=== PATIENT | male | born 1980 | race Caucasian/White ===

== ENCOUNTER 2021-05-12 15:20 | Observation (INO) | payer BC, SELFPAY ==
--- NOTE | ~2021-05-12 | US_ITS ---
EXAMINATION: US carotid duplex BI DATE: 05/13/2021 10:44 INDICATION: Slurred speech. TECHNIQUE: Grayscale, color Doppler, and pulsed Doppler images of the cervical carotid arteries were obtained. The degree of vessel stenosis is placed in one of the following categories: normal, <50%, 5 0-69%, >=70% but less than near-occlusion, near-occlusion, or total occlusion. Note that percent sten osis relative to normal distal artery lumen diameter is indirectly measured from velocity measurement s as described by Sarbjit, et al. Radiology 2003; 229:340-346. COMPARISON: Head CT 05/12/2021 FINDINGS: RIGHT: The right common carotid artery (CCA) peak systolic velocity (PSV) is 99 cm/s. The right internal car otid artery (ICA) PSV is 81 cm/s. The right ICA end-diastolic velocity (EDV) is 31 cm/s. The right IC A/CCA PSV ratio is 0.8. Grayscale and color Doppler images yield an estimate of <50% diameter reducti on from plaque in the ICA. There is antegrade flow in the right vertebral artery. LEFT: The left CCA PSV is 124 cm/s. The left ICA PSV is 74 cm/s. The left ICA EDV is 30 cm/s. The left ICA/ CCA PSV ratio is 0.6. Grayscale and color Doppler images yield an estimate of <50% diameter reduction from plaque in the ICA. There is antegrade flow in the left vertebral artery. IMPRESSION: 1. <50% stenosis in the right internal carotid artery. 2. <50% stenosis in the left internal carotid artery. Reviewed, dictated and finalized at location A.
--- NOTE | ~2021-05-12 | MR_ITS ---
EXAMINATION: MR cervical spine wo con DATE: 05/14/2021 14:16 INDICATION: Vision change. TECHNIQUE: Magnetic resonance imaging (MRI) of the cervical spine was performed without intravenous c ontrast. Sequences included sagittal T2-weighted FSE, sagittal T2-weighted FS FSE, sagittal T1-weight ed FSE, axial MERGE, and axial T2-weighted FSE. COMPARISON: None FINDINGS: Bone alignment is normal. Vertebral body heights and intervertebral disc heights are normal . There are approximately 5 ill-defined lesions of increased T2-weighted signal intensity in the cerv ical spinal cord. The following disc levels are specifically discussed: C2-C3: The disc does not extend beyond the endplate margin. There is no uncovertebral joint osteoarth ritis. There is no facet joint osteoarthritis. There is no neural foraminal stenosis. There is no elida tral canal stenosis. C3-C4: The disc does not extend beyond the endplate margin. There is no uncovertebral joint osteoarth ritis. There is no facet joint osteoarthritis. There is no neural foraminal stenosis. There is no elida tral canal stenosis. C4-C5: The disc does not extend beyond the endplate margin. There is no uncovertebral joint osteoarth ritis. There is mild bilateral facet joint osteoarthritis. There is no neural foraminal stenosis. The re is no central canal stenosis. C5-C6: There is a central extrusion. There is no uncovertebral joint osteoarthritis. There is mild le ft facet joint osteoarthritis. There is no neural foraminal stenosis. There is mild central canal jaison nosis. C6-C7: The disc does not extend beyond the endplate margin. There is no uncovertebral joint osteoarth ritis. There is no facet joint osteoarthritis. There is no neural foraminal stenosis. There is no elida tral canal stenosis. C7-T1: The disc does not extend beyond the endplate margin. There is no uncovertebral joint osteoarth ritis. There is mild bilateral facet joint osteoarthritis. There is no neural foraminal stenosis. The re is no central canal stenosis. IMPRESSION: 1. Spinal cord lesions, consistent with multiple sclerosis. Reviewed, dictated and finalized at location A.
--- NOTE | ~2021-05-12 | XR_ITS ---
EXAMINATION: XR chest 1V portable DATE: 05/12/2021 16:44 INDICATION: Blurred vision. TECHNIQUE: A single frontal view of the chest was obtained. COMPARISON: None. FINDINGS: Calcified pulmonary nodules are consistent with old granulomatous disease. No pleural effus ion or pneumothorax. The heart size is normal. IMPRESSION: 1. No acute cardiopulmonary disease. Reviewed, dictated and finalized at location A.
--- NOTE | ~2021-05-12 | MR_ITS ---
EXAMINATION: MR brain/brain stem wo/w con EXAM DATE: 05/13/2021 09:01 INDICATION: Blurry vision, slurred speech. TECHNIQUE: Magnetic resonance imaging (MRI) of the brain/brain stem obtained without contrast. Sagit donna T1, axial diffusion, gradient echo (T2*), T1, T2, FLAIR sequences obtained. Patient was then inj ected with 20 cc intravenous Multihance contrast. Axial and coronal postcontrast T1 weighted sequence s obtained. Correlation is made to CT head from yesterday. FINDINGS: There are 2 right matter signal abnormalities, one in the left centrum semiovale, frontal l obe white matter measuring 1.1 cm and the other in the left parietal lobe white matter measuring 6 mm . These demonstrate decreased T1, increased T2 signal intensity. These appear quite well marginated o n sagittal T1 weighted sequence, demonstrates increased T2 shine through, but no restricted diffusion or enhancement. Could be sequela from demyelinating disease such as multiple sclerosis or acute diss eminated encephalomyelitis (ADEM), vasculopathy, lyme's disease or reactive astrocytosis (gliosis) se condary to nonspecific etiology. A 3 month follow-up brain MRI would be appropriate. There are no areas of restricted diffusion to suggest acute infarction. There is no acute hemorrhage seen on the T2*, a hemosiderin sensitive sequence. The ventricles are normal in size. There are no extra-axial collections. Flow voids are seen in the cerebral arteries on the T2-weighted sequences consistent with their expected patency. The orbits are unremarkable. Soft tissue is unremarkable. There are no areas of abnormal enhancement on the postcontrast images. IMPRESSION: 2 white matter lesions in nonspecific locations, could be sequela from demyelinating proc ess. Some other possibilities above. Recommend 3 month follow-up brain MRI without and with contrast. Reviewed, dictated and finalized at location A. IMPRESSION: 2 white matter lesions in nonspecific locations, could be sequela f rom demyelinating process. Some other possibilities above. Recommend 3 month fo llow-up brain MRI without and with contrast.
--- NOTE | ~2021-05-12 | CT_ITS ---
EXAMINATION: CTA brain carotid EXAM DATE: 05/12/2021 23:04 INDICATION: Blurry vision and slurred speech. TECHNIQUE: Spiral CTA of the carotid arteries was performed with intravenous injection 100 cc of Omn ipaque 350. Axial, coronal, sagittal reformatted images reviewed. Additional reformatted images crea ekaterina on dedicated 3-D workstation. NASCET comparable standard used to assess the degree of arterial s tenosis. Spiral CT angiogram cerebral arteries performed with the same intravenous injection of cont rast. Source images of the brain CTA transferred to dedicated workstation for 3-D rotational image cr eation. Coronal, sagittal maximum intensity pixel images also reviewed. The dose-length product (DL P) for this examination was 1264.02 mGy-cm. The exposure was tailored according to patient size, an d iterative reconstruction (ASIR) was used as additional dose reduction technique. Correlation is mad e to head CT performed earlier same date. FINDINGS: The vertebral arteries are codominant. There is no carotid plaque, 0% carotid stenosis bila terally. There is no carotid or vertebral basilar arterial dissection or fibromuscular dysplasia. Th ere are no cerebral artery aneurysms. There is symmetric cerebral artery arborization. The sagittal, transverse and sigmoid sinuses enhance normally, no venous sinus thrombosis. Internal cerebral veins also enhance normally. Incidental Findings: Several left upper lobe granulomas. IMPRESSION: 1. No acute carotid or intracranial findings. 2. Bilateral carotid 0% stenosis. Reviewed, dictated and finalized at location A.
--- NOTE | ~2021-05-12 | XR_ITS ---
EXAMINATION: XR lumbar puncture diagnostic DATE: 05/14/2021 17:33 INDICATION: Multiple sclerosis. TECHNIQUE: The procedure including the risks, benefits, and alternatives was discussed with the patie nt. Risks discussed included spinal headache, cerebrospinal fluid leak, bleeding, and infection. The patient understood the risks and agreed to proceed. A timeout was performed to verify the patient' s name, date of , and procedure to be performed. The skin overlying the L4-L5 level was prepped and draped in usual sterile fashion. Subcutaneous 1% lidocaine was used for local anesthesia. A 20 gauge spinal needle was advanced under fluoroscopic guidance. The needle was removed and the entry s ite was cleaned and dressed. There were no immediate complications. Fluoroscopy exposure time was 0. 1 minutes. The total number of images was 1. FINDINGS: Real-time fluoroscopy demonstrates the needle at the L4-L5 level. The opening pressure was 12 cm water (Normal range is variably defined as 6-20 cm water and up to 25 cm water in obese patient s. Pressure >25 cm water is one of the modified Dandy criteria for idiopathic intracranial hypertensi on). 14 mL of clear, colorless fluid was collected in 4 tubes. IMPRESSION: 1. Successful fluoro-guided lumbar puncture. Reviewed, dictated and finalized at location A.
--- NOTE | ~2021-05-12 | CT_ITS ---
EXAMINATION: CT brain wo con DATE: 05/12/2021 16:53 INDICATION: Vision changes and slurred speech TECHNIQUE: Computed tomography (CT) of the head was performed without intravenous contrast. Sagittal and coronal reconstructions were performed. The mA was adjusted according to patient size. Iterative reconstruction technique was employed. The dose-length product was 605.33 mGy-cm. COMPARISON: None FINDINGS: No acute intracranial hemorrhage, acute infarction or abnormal extra axial fluid collection. There is mild scattered white matter hypoattenuation which is disproportionate for age. Ventricles are deacon l and symmetric. No mass/mass effect. The orbits, paranasal sinuses and mastoid air cells are normal. IMPRESSION: 1. Mild scattered white matter hypoattenuation which is disproportionate for age. The differential di agnosis includes premature chronic small vessel ischemic disease (especially if the patient is diabet ic or has other cardiovascular risk factors), demyelinating disease such as multiple sclerosis, drug abuse, vasculitis, or reactive astrocytosis (gliosis) secondary to nonspecific etiology. Reviewed, dictated and finalized at location B. IMPRESSION: 1. Mild scattered white matter hypoattenuation which is disproportionate for ag e. The differential diagnosis includes premature chronic small vessel ischemic disease (especially if the patient is diabetic or has other cardiovascular risk factors), demyelinating disease such as multiple sclerosis, drug abuse, vascul itis, or reactive astrocytosis (gliosis) secondary to nonspecific etiology.
--- NOTE | ~2021-05-12 | MR_ITS ---
EXAMINATION: MR thoracic spine wo con DATE: 05/14/2021 14:16 INDICATION: Multiple sclerosis. Vision change. TECHNIQUE: Magnetic resonance imaging (MRI) of the thoracic spine was performed without intravenous c ontrast. Sagittal localizer T1-weighted FSE of the cervical spine was obtained. Thoracic spine sequen flo included sagittal T2-weighted FSE, sagittal T1-weighted FSE, sagittal T2-weighted FS FSE, and axi al T2-weighted FSE. COMPARISON: None FINDINGS: Bone alignment is normal. There is mild chronic anterior wedging of T4 and T6-T8 vertebral bodies. At T6-T7, there is a left central extrusion with mild central canal stenosis and ventral inde ntation of the spinal cord. At T7-T8, there is a left central extrusion with mild central canal steno sis and ventral indentation of the spinal cord. At T8-T9, there is a central extrusion with mild cent ral canal stenosis and ventral indentation of spinal cord. There is multilevel mild facet joint osteo arthritis. No neural foraminal stenosis. The spinal cord signal intensity is normal. IMPRESSION: 1. Mild thoracic spondylosis. Reviewed, dictated and finalized at location A.
[2021-05-12 16:20] VITALS: BP 112/97; PULSE 50; RESP 14; TEMP 36.8; O2SAT 97
--- NOTE | 2021-05-12 16:26 | ECG_ITS ---
Measurements Intervals [place] Rate: 57 P: 55 MI: 128 QRS: 15 QRSD: 94 T: 41 QT: 417 QTc: 408 Interpretive Statements SINUS BRADYCARDIA BASELINE ARTIFACT- I, III, AVR, AVL, AVF, V1 BORDERLINE ECG Electronically Signed On 05-12-2021 18:52:13 CDT by Can Rodriges D.O.
[2021-05-12 16:50] LABS: Basophils Percent Auto 0.5 % (0.2-1.2); Eosinophils Absolute Auto 0.2 K/mm3 (0-0.3); Eosinophils Percent Auto 2.6 % (0-4.4); Hematocrit 49.9 % (42.0-52.0); Hemoglobin 15.9 g/dL (14.0-18.0); Immature Granulocyte Absolute 0.01 K/mm3 (0.00-0.031); Immature Granulocyte Percent A 0.2 % (0-0.5); Lymphocytes Absolute Auto 1.98 K/mm3 (0.9-3.2); Mean Corpuscular HGB Conc 31.9 g/dl (32-36); Mean Corpuscular Volume 91.1 fl (80-100); Mean Platelet Volume 9.9 fl (7.4-10.4); Monocytes Absolute Auto 0.5 K/mm3 (0.1-0.6); Monocytes Percent Auto 7.6 % (2.6-8.5); Neutrophils Absolute Auto 3.9 K/mm3 (1.3-6.7); Neutrophils Percent Auto 59.1 % (45.5-73.1); Platelet Count Result 242 k/mm3 (150-375); Red Blood Count 5.48 M/mm3 (4.6-6.20); Red Cell Distribution Width 13.7 % (11.5-14.5); White Blood Count 6.6 K/mm3 (4.5-10.0)
[2021-05-12 17:01] LABS: Anion Gap 10 mmol/L (8-16); Blood Urea Nitrogen 14 mg/dL (9-20); Calcium 9.3 mg/dL (8.4-10.2); Carbon Dioxide 26 mmol/L (22-30); Chloride 101 mmol/L (98-107); Estimated Glomerular Filt Rate > 60; Glucose 96 mg/dL (65-110); Potassium 3.9 mmol/L (3.4-5.0); Sodium 137 mmol/L (137-145)
[2021-05-12 17:04] LABS: Partial Thromboplastin Time 27.3 SECONDS (22.3-36.8)
[2021-05-12 17:13] LABS: Troponin I < 0.012 ng/mL (0.000-0.034)
[2021-05-12 20:38] VITALS: BP 131/95; PULSE 54; RESP 17; TEMP 35.9; O2SAT 100
[2021-05-12 21:21] VITALS: BP 122/66; PULSE 55; O2SAT 100
--- NOTE | 2021-05-12 21:24 | ED.EYEPROB ---
HPI - Eye Problem General Chief complaint: Eye Problems Stated complaint: VISUAL CHANGES SINCE YESTERDAY Time Seen by Provider: 05/12/21 20:55 History of Present Illness HPI Narrative: Patient presents with multiple neurological complaints. Reports approximately 3 weeks ago he had a few days of slurred speech which resolved without intervention. Yesterday she woke up with description of blurry vision and bright vision in both of his eyes. It is persisted today talk to his primary care doctor is referred to ER for evaluation. Denies any headache, lightheadedness, chest pain, shortness of breath, numbness, weakness. Denies any family history of neurological disorders Related Data Home Medications Medication Instructions Recorded Confirmed No Home Medications 05/07/21 05/07/21 Allergies Allergy/AdvReac Type Severity Reaction Status Date / Time No Known Allergies Allergy Unverified 05/12/21 14:14 Review of Systems Review of Systems: CONSTITUTIONAL: Denies fever, chills, or sweats. EYES: Denies visual changes, redness, or discharge. ENT: Denies rhinorrhea, congestion, sore throat, or otalgia. CARDIOVASCULAR: Denies chest pain, palpitations, or edema. RESPIRATORY: Denies cough or dyspnea. GASTROINTESTINAL: Denies abdominal pain, nausea, vomiting, or diarrhea. GENITOURINARY: Denies dysuria or hematuria. SKIN: Denies rash or itching. MUSCULOSKELETAL: Denies back pain, joint pain, or myalgia. NEUROLOGIC: Denies headache, numbness, dizziness, or weakness. PSYCHIATRIC: Denies anxiety or depression. All systems reviewed & are unremarkable except as noted in HPI and below PMFSH Surgical History Surgical History H/O vasectomy History of removal of cyst Family History Family History Mother High cholesterol Cancer Father Cerebrovascular accident Grandparent Acute myocardial infarction High cholesterol Heart disease Social History Social History Social History: Second hand tobacco smoke exposure: No Alcohol intake: never Substance use: never Substance use type: does not use Gender identity (if verbalized by the patient): Male Exam Narrative: GENERAL: Well-appearing, well-nourished, and in no acute distress. HEAD: Normocephalic, atraumatic. EYES: PERRLA and EOMI. ENT: Nares clear, no rhinorrhea or epistaxis. Mucous membranes moist. NECK: Supple. No masses. No JVD CHEST: Clear to auscultation. No respiratory distress. No wheezes rales or rhonchi HEART: Regular rate and rhythm. No murmur heard. Normal peripheral pulses. ABDOMEN: Soft, nontender, nondistended, normal active bowel sounds. EXTREMITIES: Normal range of motion. No edema. SKIN: Warm, dry, no rash. NEURO: Cranial nerves II through XII in tact patient is 5 out of 5 strength in all extremities, sensation intact to light touch in all extremities. Alert and oriented x3. PSYCH: Normal mood and affect. Course Vital Signs Vital signs: Vital Signs Temperature 36.8 C 05/12/21 16:20 Pulse Rate 50 L 05/12/21 16:20 Respiratory Rate 14 05/12/21 16:20 Blood Pressure 112/97 H 05/12/21 16:20 Pulse Oximetry 97 05/12/21 16:20 Temperature 35.9 C L 05/12/21 20:38 Pulse Rate 66 05/13/21 02:03 Respiratory Rate 19 05/13/21 02:03 Blood Pressure 109/71 05/13/21 02:03 Pulse Oximetry 99 05/13/21 02:03 MDM - Eye Problem MDM Narrative Medical decision making narrative: Patient presented with waxing waning neurological symptoms. Patient overall looks clinically well there is no appreciable focal neurological deficit on exam. Labs imaging obtained imaging with hypoattenuation in the white matter. Given waxing waning symptoms age and lack of risk factors primary concern is for MS. Case discussed with neurology who recommended admission for [facility]
[2021-05-12 23:26] VITALS: BP 112/71; PULSE 56; RESP 19; O2SAT 100
--- NOTE | 2021-05-13 | ECHO_ITS ---
Patient Info Name: Ilia Leal Age: 41 years : 1980 Gender: Male Ht: 73 in Wt: 224 lbs BSA: 2.31 m2 HR: 64 bpm BP: 120 / 66 mmHg Technical Quality: Fair Exam Date: 05/13/2021 12:23 PM Exam Location: [facility] Patient Status: Inpatient Admit Date: 05/13/2021 Staff Ordering Physician: Marko [employer] Website Developer: Gifty Patterson RDCS Attending Provider: Sepideh Rolle DO Referring Physician: Zafar TODD; Exam Type: CA echo doppler color flow Study Info Indications - neurologigal defects Complete two-dimensional, color flow and Doppler transthoracic echocardiogram is performed. Summary 1. Complete two-dimensional, color flow and Doppler transthoracic echocardiogram is performed. 2. Left ventricular chamber dimension is normal. 3. Left ventricular systolic function is normal, estimated at 60-65%. 4. The left ventricular diastolic function is normal. 5. E/e' 5 is not elevated. 6. No pulmonary hypertension, estimated pulmonary arterial systolic pressure is 22 mmHg. Left Ventricle E/e' 5 is not elevated. Left ventricular chamber dimension is normal. Left ventricular systolic function is normal, estimated at 60-65%. The left ventricular diastolic function is normal. Right Ventricle Right ventricular chamber dimension is normal. Right ventricular systolic function is normal. Left Atria Left atrial chamber dimension is normal. Right Atria Right atrial chamber dimension is normal. Aortic Valve The aortic valve is trileaflet. There is no aortic valve stenosis. There is no aortic valve regurgitation. Pulmonic Valve There is no pulmonic regurgitation. Mitral Valve There is no mitral valve stenosis. There is no mitral valve regurgitation. Tricuspid Valve There is no tricuspid valve regurgitation. No pulmonary hypertension, estimated pulmonary arterial systolic pressure is 22 mmHg. Pericardium/Pleural There is no pericardial effusion. Inferior Vena Cava Normal inferior vena cava with >50% collapse upon inspiration consistent with normal right atrial pressure, 5 mmHg. Aorta The aortic root size at the sinus of Valsalva is normal. Left Ventricular Outflow Tract Name Value Normal LVOT 2D LVOT Diameter 2.1 cm LVOT Doppler LVOT Peak Gradient 7 mmHg LVOT Mean Gradient 4 mmHg LVOT VTI 26 cm LVOT VTI/AV VTI Ratio 0.9 LVOT Stroke Volume 88 ml LVOT CO 19.2 l/min LVOT CI 8.3 l/min/m2 Pulmonic Valve Name Value Normal PV Doppler PV Peak Gradient 3 mmHg Mitral Valve Name
[2021-05-13 01:04] VITALS: BP 141/86; PULSE 61; RESP 18; O2SAT 98
[2021-05-13 02:03] VITALS: BP 109/71; PULSE 66; RESP 19; O2SAT 99
[2021-05-13 02:56] VITALS: BP 116/71; PULSE 52; RESP 17; O2SAT 97
--- NOTE | 2021-05-13 03:00 | ADMGEN ---
This patient, Ilia Leal, was admitted to Medical Room 340-01. Patient/family oriented to hospital policies and general routines including ID bracelet, bed and alarms, visiting hours, pain management, procedures, bathroom and other care routines, personal items, smoking policy, room service/diet, and visiting hours. Information on how to activate the Rapid Response Team has been discussed. Patient/Family are encouraged to report perceived risks to care and to ask questions if they do not understand what they are told or what they should do.
[2021-05-13 03:03] VITALS: BP 120/66; PULSE 64; RESP 16; TEMP 36.6; O2SAT 99
[2021-05-13 03:08] VITALS: BMI 29.6
--- NOTE | 2021-05-13 07:17 | PM.IMHP ---
H&P: HPI History of Present Illness Date/Time: Date of Service: 05/13/21 07:17 Chief Complaint: Blurred Vision Narrative: Patient is a 41 year old with no medical history came to the ED for evaluation of blurred vision that started on Monday. Patient stated that about 3 weeks ago he experienced slurred speech that spontaneously resolved after 3-4 days. At that time he did not feel that it was a problem since it did resolve. However, on Monday he woke up at 0600 and had blurred vision in both eyes. He stated that it was still there on Monday so he consulted with his primary care physician. His PCP recommended that he come to the ED for further evaluation. Today, he stated that he was tired. He did not have any complaints of chest pain, palpitations, shortness of breath, nausea, vomiting, abdominal pain, headache, nuchal rigidity, urinary dysfunction including urgency/frequency, fever, sweats, chills, weakness (unilateral or bilateral), fatigue, constipation, diarrhea, syncope, or falls. Patient did say that he has been going to a chiropractor on and off for the last 4-5 years. He did state that his last visit was roughly beginning of summer. Patient has been admitted to our service as observation status Review of Systems Review of Systems: All systems reviewed & are unremarkable except as noted in HPI and below PMFSH Surgical History Surgical History H/O vasectomy History of removal of cyst Family History Family History Mother High cholesterol Cancer unknown what kind of cancer Father Cerebrovascular accident On 05/08/21 High cholesterol History of common carotid artery stent placement Grandparent Acute myocardial infarction High cholesterol Heart disease Social History Social History Social History: Patient is to Nolvia who will be his surrogate. He lives in a house with her and his four children. He also has two cats. He wishes to be a full code. Smoking status: Never smoker Second hand tobacco smoke exposure: No Alcohol intake: never Substance use: never Substance use type: does not use Living arrangements: with family Gender identity (if verbalized by the patient): Male Sexual Orientation (if Verbalized by the Patient): Straight or Heterosexual Spiritual care concerns: No (Hinduism) Agree to blood products: Yes Meds Home Medications and Allergies Home Medications Medication Instructions Recorded Confirmed Type No Home Medications 05/07/21 05/13/21 History Allergies Allergy/AdvReac Type Severity Reaction Status Date / Time No Known Allergies Allergy Verified 05/13/21 03:05 Vital Signs Vital Signs - 24 hr 05/12/21 16:20 05/12/21 20:38 05/12/21 21:21 Temperature 36.8 C 35.9 C L Pulse Rate 50 L 54 L 55 L Respiratory Rate 14 17 Blood Pressure 112/97 H 131/95 H 122/66 Pulse Oximetry 97 100 100 05/12/21 23:26 05/13/21 01:04 05/13/21 02:03 Temperature Pulse Rate 56 L 61 66 Respiratory Rate 19 18 19 Blood Pressure 112/71 141/86 H 109/71 Pulse Oximetry 100 98 99 05/13/21 02:56 05/13/21 03:03 Temperature 36.6 C Pulse Rate 52 L 64 Respiratory Rate 17 16 Blood Pressure 116/71 120/66 Pulse Oximetry 97 99 Exam Const: General: cooperative, healthy appearing, comfortable, no acute distress, well developed, alert, awake, Physically active and tired appearing Nutritional Appearance: average body habitus and well nourished Orientation/consciousness: oriented to person, oriented to place, oriented to time and patient oriented x3 Limitations: no limitations HENMT: Head: normal to inspection Ears: hearing grossly normal bilaterally General nose exam: Normal external nose present Mouth: Yes Normal oral and palatal mucosa present, Yes lip normal
[2021-05-13 14:00] VITALS: BP 123/68; PULSE 63; RESP 18; TEMP 35.8; O2SAT 100
--- NOTE | 2021-05-13 16:23 | WPDNEURCNPN ---
Consult date: 05/13/21 HPI: Ilia Leal is a 41 year old male has been admitted to the hospital [facility] Surgical History Surgical History H/O vasectomy History of removal of cyst Family History Family History Mother High cholesterol Cancer unknown what kind of cancer Father Cerebrovascular accident On 05/08/21 High cholesterol History of common carotid artery stent placement Grandparent Acute myocardial infarction High cholesterol Heart disease Social History Social History Social History: Patient is to Nolvia who will be his surrogate. He lives in a house with her and his four children. He also has two cats. He wishes to be a full code. Smoking status: Never smoker Second hand tobacco smoke exposure: No Alcohol intake: never Substance use: never Substance use type: does not use Living arrangements: with family Gender identity (if verbalized by the patient): Male Sexual Orientation (if Verbalized by the Patient): Straight or Heterosexual Spiritual care concerns: No (Holiness) Agree to blood products: Yes Meds Home Medications and Allergies Home Medications Medication Instructions Recorded Confirmed Type No Home Medications 05/07/21 05/13/21 History Allergies Allergy/AdvReac Type Severity Reaction Status Date / Time No Known Allergies Allergy Verified 05/13/21 03:05 Vital Signs Vital Signs - 24 hr 05/12/21 20:38 05/12/21 21:21 05/12/21 23:26 Temperature 35.9 C L Pulse Rate 54 L 55 L 56 L Respiratory Rate 17 19 Blood Pressure 131/95 H 122/66 112/71 Pulse Oximetry 100 100 100 05/13/21 01:04 05/13/21 02:03 05/13/21 02:56 Temperature Pulse Rate 61 66 52 L Respiratory Rate 18 19 17 Blood Pressure 141/86 H 109/71 116/71 Pulse Oximetry 98 99 97 05/13/21 03:03 05/13/21 14:00 Temperature 36.6 C 35.8 C L Pulse Rate 64 63 Respiratory Rate 16 18 Blood Pressure 120/66 123/68 Pulse Oximetry 99 100 Results Labs CBC & Chem 7: 05/12/21 16:35 05/12/21 16:35 Labs: Short CBC 05/12/21 Range/Units 16:35 WBC 6.6 (4.5-10.0) K/mm3 Hgb 15.9 (14.0-18.0) g/dL Hct 49.9 (42.0-52.0) % Plt Count 242 (150-375) k/mm3 BMP 05/12/21 16:35 Sodium 137 Potassium 3.9 Chloride 101 Carbon Dioxide 26 BUN 14 Creatinine 0.70 Glucose 96 Calcium 9.3 Cardiac Enzymes 05/12/21 Range/Units 16:35 Troponin I < 0.012 (0.000-0.034) ng/mL Quality VTE Prophylaxis VTE prophylaxis: mechanical ordered (SCDs)
--- NOTE | 2021-05-13 16:31 | WPDNEURCNPN ---
Assessment and Plan Additional Plan considering the symptomatology, and negative evaluation otherwise except the 2 spots on MRI I discussed with him thoroughly to have the MRI of the cervical and thoracic spine even if he do not want to go through the spinal tap to rule out the possibility of demyelinating process further recommendation will be made accordingly Consult date: 05/13/21 Time Seen: 09:30 HPI: Ilia Leal is a 41 year old male Has been admitted to the hospital through the emergency room for the complaints of blurred vision since Monday patient reported about 3 weeks ago he experienced slurred speech that is spontaneously resolved after several days and at that time he did not feel that it was a problem since it did resolved however on Monday he woke up at 6:00 a.m. with the blurred vision in both eyes when he consulted a primary care physician who recommended him to come to the emergency room for further evaluation he had no other associated generalized symptomatology. His past history is consistent with only having had a vasectomy, he is not a smoker does not drink not allergic to any medications and also not taking any home medications his evaluation up until now has documented him to have normal routine blood studies with INR of 1.0 and a PTT of 27.3, chemistry is normal, initial CT scan of the head in the emergency room was negative except mild scatter white matter hypoattenuation disproportionate for the age head neck CTA revealed no evidence of carotid or intracranial finding and there were bilateral carotid 0% stenosis, echocardiogram has documented normal dimension of the left ventricular chamber left ventricular systolic functions and ejection fraction as well no evidence of pulmonary hypertension carotid ultrasound documented less than 50% stenosis bilaterally but MRI of the brain documented 2 white matter lesions in nonspecific location which could be the sequela of demyelinating process which repeat follow-up MRI studies were suggested Review of Systems Review of Systems: All systems reviewed & are unremarkable except as noted in HPI and below PMFSH Surgical History Surgical History H/O vasectomy History of removal of cyst Family History Family History Mother High cholesterol Cancer unknown what kind of cancer Father Cerebrovascular accident On 05/08/21 High cholesterol History of common carotid artery stent placement Grandparent Acute myocardial infarction High cholesterol Heart disease Social History Social History Social History: Patient is to Nolvia who will be his surrogate. He lives in a house with her and his four children. He also has two cats. He wishes to be a full code. Smoking status: Never smoker Second hand tobacco smoke exposure: No Alcohol intake: never Substance use: never Substance use type: does not use Living arrangements: with family Gender identity (if verbalized by the patient): Male Sexual Orientation (if Verbalized by the Patient): Straight or Heterosexual Spiritual care concerns: No (Synagogue) Agree to blood products: Yes Meds Home Medications and Allergies Home Medications Medication Instructions Recorded Confirmed Type No Home Medications 05/07/21 05/13/21 History Allergies Allergy/AdvReac Type Severity Reaction Status Date / Time No Known Allergies Allergy Verified 05/13/21 03:05 Vital Signs Vital Signs - 24 hr 05/12/21 20:38 05/12/21 21:21 05/12/21 23:26 Temperature 35.9 C L Pulse Rate 54 L 55 L 56 L Respiratory Rate 17 19 Blood Pressure 131/95 H 122/66 112/71 Pulse Oximetry 100 100 100 05/13/21 01:04 05/13/21 02:03 05/13/21 02:56 Temperature Pulse Rate 61 66 52 L Respiratory Rate 18 19 17 Blood Pressure 141/86 H 109/71 116/71 Pu
[2021-05-13 22:00] VITALS: BP 109/58; PULSE 67; RESP 20; TEMP 36.8; O2SAT 99
[2021-05-14 06:00] VITALS: BP 121/68; PULSE 52; RESP 20; TEMP 36.4; O2SAT 99
[2021-05-14 14:00] VITALS: BP 131/73; PULSE 64; RESP 16; TEMP 36.5; O2SAT 99
--- NOTE | 2021-05-14 14:55 | WPDNEUROPN ---
Objective Data Vital Signs Vital Signs: Vital Signs - 24 hr 05/13/21 22:00 05/14/21 06:00 Temperature 36.8 C 36.4 C L Pulse Rate 67 52 L Respiratory Rate 20 20 Blood Pressure 109/58 L 121/68 Pulse Oximetry 99 99 Intake/Output Intake/Output: Intake & Output 05/11/21 05/12/21 05/13/21 05/14/21 23:59 23:59 23:59 23:59 Intake Total 1920 400 Output Total 300 300 Balance 1620 100 Meds/Results Radiology Results: ITS Impressions Chest X-Ray 05/12/21 16:45 IMPRESSION: 1. No acute cardiopulmonary disease. Head CT 05/12/21 16:56 IMPRESSION: 1. Mild scattered white matter hypoattenuation which is disproportionate for age. The differential diagnosis includes premature chronic small vessel ischemic disease (especially if the patient is diabetic or has other cardiovascular risk factors), demyelinating disease such as multiple sclerosis, drug abuse, vasculitis, or reactive astrocytosis (gliosis) secondary to nonspecific etiology. Head/Neck CTA 05/13/21 07:15 IMPRESSION: 1. No acute carotid or intracranial findings. 2. Bilateral carotid 0% stenosis. Brain MRI 05/13/21 09:06 IMPRESSION: 2 white matter lesions in nonspecific locations, could be sequela from demyelinating process. Some other possibilities above. Recommend 3 month follow-up brain MRI without and with contrast. Carotid Doppler Study 05/13/21 10:57 IMPRESSION: 1. <50% stenosis in the right internal carotid artery. 2. <50% stenosis in the left internal carotid artery. Cervical Spine MRI 05/14/21 14:18 IMPRESSION: 1. Spinal cord lesions, consistent with multiple sclerosis. Thoracic Spine MRI 05/14/21 14:21 IMPRESSION: 1. Mild thoracic spondylosis. Quality VTE Prophylaxis VTE prophylaxis: mechanical ordered (SCDs)
[2021-05-14 16:02] LABS: Hematocrit 49.7 % (42.0-52.0); Hemoglobin 15.5 g/dL (14.0-18.0); Mean Corpuscular HGB Conc 31.2 g/dl (32-36); Mean Corpuscular Volume 93.1 fl (80-100); Platelet Count Result 228 k/mm3 (150-375); Red Blood Count 5.34 M/mm3 (4.6-6.20); Red Cell Distribution Width 13.8 % (11.5-14.5); White Blood Count 6.5 K/mm3 (4.5-10.0)
[2021-05-14 16:13] LABS: INR 1.1; Prothrombin Time 13.8 Seconds (11.1-14.7)
[2021-05-14 16:14] LABS: Alanine Aminotransferase 15 U/L (4-50); Albumin Level 4.1 g/dL (3.5-5.1); Alkaline Phosphatase 81 U/L (38-126); Anion Gap 12 mmol/L (8-16); Aspartate Amino Transferase 19 U/L (17-59); Bilirubin,Total 0.2 mg/dL (0.2-1.3); Blood Urea Nitrogen 10 mg/dL (9-20); Calcium 8.7 mg/dL (8.4-10.2); Carbon Dioxide 21 mmol/L (22-30); Chloride 104 mmol/L (98-107); Estimated CRCL calculation 157 ml/min; Estimated Glomerular Filt Rate > 60; Glucose 123 mg/dL (65-110); Potassium 3.4 mmol/L (3.4-5.0); Sodium 137 mmol/L (137-145)
--- NOTE | 2021-05-14 16:24 | PM.DS ---
DS: Admitting Diagnosis Admitting Diagnosis Multiple Sclerosis DS: Discharge Diagnosis Discharge Diagnosis (1) Multiple sclerosis: Code(s): G35 - Multiple sclerosis Status: Acute Assessment and Plan: Brain MRI shows demyelination and hypoattenuation Cervical spine MRI shows Lesions consistent with MS Will follow up with Dr. Galindo in 10 days Call for appt. Lumbar puncture pending (2) Visual disturbance: Code(s): H53.9 - Unspecified visual disturbance Status: Acute Assessment and Plan: Reports blurred vision for the last two days Head ct shows Mild scattered white matter hypoattenuation which is disproportionate for age Head and neck CTA bilateral carotid 0% stenosis Carotid doppler ordered and pending MRI ordered and pending Neurology consult thank you for recommendations Neuro checks Q4hr Echo ordered SCDs (3) Slurred speech: Code(s): R47.81 - Slurred speech Status: Acute Assessment and Plan: See above DS: Summary Hospital Course Reason for hospitalization: Date of service 05/14/2021 at 11:30 a.m. Hospital Course: Patient is a 41-year-old male here for evaluation of multiple sclerosis patient had MRIs of his head, neck, spine which was consistent with multiple sclerosis with noted lesions and demyelination. Patient is going for spinal tap and will need to follow up with to see her in about 10 days. Patient does say he feels about the same but not any worse. Vision is still blurred and has get headaches with reading. He did say that he has not been to the eye doctor in a long while, but will make an appointment. Patient denies chest pain, shortness of breath, nausea, vomiting, weakness, fatigue, fevers, sweats, or chills. Status at Discharge Functional status at discharge: independent ambulation Overall status at discharge: patient is back to baseline Time Spent with Patient Time attestation: Total time spent providing and/or coordinating discharge services: 52 minutes Time spent: Greater than 30 minutes Exam Const: General: cooperative, healthy appearing, comfortable, no acute distress, well developed, alert, awake, Physically active and tired appearing Nutritional Appearance: average body habitus and well nourished Orientation/consciousness: oriented to person, oriented to place, oriented to time and patient oriented x3 Limitations: no limitations HENMT: Head: normal to inspection Ears: hearing grossly normal bilaterally General nose exam: Normal external nose present Mouth: Yes Normal oral and palatal mucosa present, Yes lip normal and Yes tongue normal Teeth and gingiva: abnormal tooth and associated gingiva and poor dentition Eyes: General: appearance normal, both eyes and all related structures Pupils: Equal, round and reactive pupils present Neck: Neck: normal visual inspection, full ROM, trachea midline and supple Chest: Chest palpation & inspection: normal inspection of the chest Resp: Effort & Inspection: normal respiratory effort and able to speak in complete sentences Auscultation: clear to auscultation bilaterally Cardio: Jugular venous distension: no JVD Rate: regular rate Rhythm: regular rhythm Heart sounds: S1 normal heart sound present and S2 normal heart sound present Peripheral pulses: Peripheral pulses 2+ throughout GI: Inspection: normal to inspection Auscultation: normal bowel sounds Skin: General skin exam: normal color and no rashes or lesions noted Lesions: no lesions Rashes: no rashes Trauma: no lacerations or abrasions Wounds: no wounds Hair: normal Nails: normal Neuro: General: oriented to person, oriented to place, oriented to time, patient oriented x3, gait normal, tone normal, moves all extremities, Normal light touch and pain sensation and CN's II-XI intact bilaterally Cranial nerves: Yes CN's II-XII intact bilaterally, Yes Equal, round and reactive pupils present,
[2021-05-14] MEDS: ACETAMINOPHEN 500 MG TABLET 1000 MG PO (16:43)
[2021-05-14 16:56] VITALS: BP 130/82; PULSE 65; RESP 16; O2SAT 97
[2021-05-14 17:27] VITALS: BP 129/79; PULSE 61; RESP 20; O2SAT 99
[2021-05-14 18:09] LABS: Glucose CSF 61 mg/dL (40-70); Total Protein CSF 83 mg/dL (12-60)
[2021-05-14 18:57] LABS: Appearance CSF Clear (Clear); CSF source CSF; Color CSF Colorless (Colorless)
[2021-05-14 18:59] LABS: Lymphocytes CSF 88 % (40-80); Monocytes CSF 12 % (15-45); Neutrophils CSF 0 % (0-6); Nucleated Cell CSF 26 /uL (0-5); Red Blood Cell CSF 37 (0-2)
== END 2021-05-14 20:10 | disposition home or self-care (01) ==
LOC: ANHED 05-13 02:21 → ANH3MED 05-13 03:27
PROVIDERS: Emergency Medicine; Nurse Practitioner; Psychiatry & Neurology Neurology; Admitting Provider Internal Medicine; Emergency Provider Emergency Medicine; PCP Family Medicine; Visit Provider Internal Medicine
DX: G35 Multiple sclerosis (principal); H53.8 Other visual disturbances; R47.81 Slurred speech; M47.814 Spondylosis without myelopathy or radiculopathy, thoracic region; R90.89 Other abnormal findings on diagnostic imaging of central nervous system; R68.89 Other general symptoms and signs
CPT/HCPCS: 36415; 62328; 70450; 70496; 70498; 70553; 71045; 72141; 72146; 80048; 80053; 82040; 82042; 82784; 82945; 83873; 83916; 84157; 84484; 85025; 85027; 85060; 85610; 85730; 87015; 87070; 87102; 87116; 87205; 87206; 88302; 89051; 93005; 93306; 93880; 99285; A9270; A9577; G0378; Q9967

== ENCOUNTER 2022-10-19 11:56 | Outpatient (CLI) | payer BC, SELFPAY ==
[2022-10-19 19:59] LABS: Alanine Aminotransferase 23 U/L (6-50); Albumin Level 4.1 g/dL (3.5-5.1); Alkaline Phosphatase 73 U/L (38-126); Anion Gap 4 mmol/L (8-16); Aspartate Amino Transferase 31 U/L (17-59); Bilirubin,Total 0.6 mg/dL (0.2-1.3); Blood Urea Nitrogen 14 mg/dL (9-20); Calcium 8.8 mg/dL (8.4-10.2); Carbon Dioxide 31 mmol/L (22-30); Chloride 105 mmol/L (98-107); Cholesterol 137 mg/dL (0-200); Estimated Glomerular Filt Rate > 60; Glucose 83 mg/dL (65-110); HDL Direct 44 mg/dL; Potassium 4.6 mmol/L (3.4-5.0); Sodium 140 mmol/L (137-145); Triglycerides 63 mg/dL (<150)
[2022-10-19 20:10] LABS: LDL Cholesterol Direct 64 mg/dL
[2022-10-19 20:49] LABS: Basophils Percent Auto 0.7 % (0.2-1.2); Eosinophils Absolute Auto 0.3 K/mm3 (0-0.3); Eosinophils Percent Auto 6.8 % (0-4.4); Hematocrit 45.4 % (42.0-52.0); Hemoglobin 14.7 g/dL (14.0-18.0); Immature Granulocyte Absolute 0.01 K/mm3 (0.00-0.031); Immature Granulocyte Percent A 0.2 % (0-0.5); Lymphocytes Absolute Auto 1.22 K/mm3 (0.9-3.2); Lymphocytes Percent Auto 26.8 % (18.3-44.2); Mean Corpuscular HGB Conc 32.4 g/dl (32-36); Mean Corpuscular Hemoglobin 28.8 pg (26-34); Mean Corpuscular Volume 88.8 fl (80-100); Mean Platelet Volume 10.2 fl (7.4-10.4); Monocytes Absolute Auto 0.5 K/mm3 (0.1-0.6); Monocytes Percent Auto 10.3 % (2.6-8.5); Neutrophils Absolute Auto 2.5 K/mm3 (1.3-6.7); Neutrophils Percent Auto 55.2 % (45.5-73.1); Platelet Count Result 251 k/mm3 (150-375); Red Blood Count 5.11 M/mm3 (4.6-6.20); Red Cell Distribution Width 13.5 % (11.5-14.5); White Blood Count 4.6 K/mm3 (4.5-10.0)
== END 2022-10-19 11:57 | disposition home or self-care (01) ==
LOC: ANHGOSHLAB 11:57
PROVIDERS: PCP Family Medicine; Visit Provider Family Medicine
DX: E78.5 Hyperlipidemia, unspecified (principal)
CPT/HCPCS: 36415; 80053; 80061; 84443; 85025